=== PATIENT | male | born 1975 | race Caucasian/White ===

== ENCOUNTER 2021-02-03 12:20 | Emergency (ER) | payer MEDICARE ==
[~2021-02-03] VITALS: Ht 177.8 cm; Wt 117.9 kg
[~2021-02-03 12:20] MED LIST: ACCUNEB SO1.25 MG/1 INH; ACETAMINOPHEN-1 EAC1 PO; ADVAIR 100-501 EACH INH; ADVAIR HFA115 MCG/21 INH; ALBUTEROL INHAL17 GM IH; ALBUTEROL2.5 MG/0.1 IH; ALBUTEROL2.5 MG/0.5 INH; ALBUTEROL2.5 MG/32 IH; APAP/CODEINE ELI5 M1 PO; AUGMENTIN 875875 MG PO; AZITHROMYCIN 2250 MG PO; BENTYL 20 MG TA20 M1 PO; BROVANA15 MCG/2 M INH; CARAFATE 1 GM TA1 G1 PO; DILANTIN100 MG; DOXYCYCLINE 10100 MG PO; DUONEB 2.5-0.5 M3 ML INH; FAMOTIDINE 20 M20 MG PO; FIORICET 50-301 EACH PO; FLECTOR1 EA TP; FLEXERIL PO; HYDROCODON-ACE1 EAC5 PO; HYDROCODON-ACE1 EAC7 PO; HYDROCODONE-AP1 EAC6 PO; IBUPROFEN 600600 M1 PO; IBUPROFEN 800800 M1 PO; IBUPROFEN 800800 MG PO; KEPPRA 500 MG500 M1 PO; KEPPRA1000 MG PO; LEVAQUIN 500 M500 M4 PO; MEDROLDOSEPACK PO; NAPROSYN500 MG PO; NICOTINE TRANSD14 M1 TD; NOHOMEMEDICATIONS; NORCO 5-325 TA1 EAC1 PO; NORCO 5-325 TA1 EACH PO; NORFLEX100 MG PO; OXCARBAZEPINE300 MG PO; PERCOCET; PREDNISONE 10 M10 MG PO; PREDNISONE 20 M20 M1 PO; PREDNISONE50 MG PO; PRILOSEC 20 MG20 MG PO; PROAIR HFA8.5 GM IH; PROAIR HFA8.5 GM PO; PROTONIX40 M1 PO; PROVENTIL HFA6.7 G1 INH; ROBAXIN500 MG PO; SINGULAIR 10 MG10 M1 PO; SPIRIVA18 MCG INH; TESSALON PERLE100 MG PO; TRICOR145 MG PO; TRILEPTAL300 MG PO; VENTOLIN HFA 1818 GM INH; ZOFRAN ODT4 M1 PO; ZPAK PO
[2021-02-03] MEDS ORDERED: CRESTOR20 MG PO (12:33)
[2021-02-03] MEDS ORDERED: TIZANIDINE HCL4 M1 PO (12:33)
[2021-02-03] MEDS ORDERED: TOPROL XL25 MG PO (12:33)
[2021-02-03 14:12] VITALS: BP 142/82
== END 2021-02-03 14:12 | disposition home or self-care (01) ==
LOC: M.ERS 12:20
DX: M54.5 Low back pain (principal); J44.9 Chronic obstructive pulmonary disease, unspecified; F17.210 Nicotine dependence, cigarettes, uncomplicated; Z88.5 Allergy status to narcotic agent; Z88.6 Allergy status to analgesic agent; Z90.49 Acquired absence of other specified parts of digestive tract